=== PATIENT | male | born 1995 | race Caucasian/White ===

== ENCOUNTER 2017-01-18 20:42 | Emergency (ER) | payer MEDICAID ==
[~2017-01-18] VITALS: Ht 175.3 cm; Wt 77.3 kg
[2017-01-18] MEDS: KETOROLAC TROMETHAMINE 60 MG/2 ML VIAL IM ONE ×2 (21:20→21:30)
[2017-01-18] MEDS ORDERED: KETOROLAC TROMETHAMINE 10 MG TABLET PO ONE (21:30)
[2017-01-18 22:06] VITALS: BP 137/73
[2017-01-18] MEDS ORDERED: OxyCODONE HCL/ACETAMINOPHEN 5-325 MG TABLET PO ONE (22:30)
== END 2017-01-18 22:40 | disposition home or self-care (01) ==
LOC: EMS 20:44
DX: Z76.0 Encounter for issue of repeat prescription (principal); M25.522 Pain in left elbow
CPT/HCPCS: 99283; J1885